=== PATIENT | male | born 1995 | race African-American/Black ===

== ENCOUNTER 2017-07-30 10:29 | Emergency (ER) | payer SELFPAY ==
[~2017-07-30] VITALS: Ht 198.1 cm; Wt 66.2 kg
[2017-07-30 10:37] VITALS: BP 119/76
[2017-07-30] MEDS ORDERED: NACL 0.9% 1,000 ML IV SCH (10:48)
[2017-07-30] MEDS ORDERED: ONDANSETRON 4 MG/2 ML VIAL IVP ONE (10:50)
[2017-07-30] MEDS ORDERED: FAMOTIDINE 20 MG/2 ML VIAL IVP ONE (10:50)
[2017-07-30 11:27] LABS: HEMATOCRIT 49.6 % (36-52); HEMOGLOBIN 15.9 g/dL (12.0-18.0); MEAN CORPUSCULAR HEMOGLOBIN 25 pg (27-31); MEAN CORPUSCULAR HGB CONC 32 g/dL (33-37); MEAN CORPUSCULAR VOLUME 78 fL (80-94); PLATELET COUNT (AUTO) 211 K/uL (140-450); RED BLOOD CELL COUNT(AUTO) 6.38 MIL/uL (4.20-6.10); RED CELL DISTRIBUTION WIDTH 12.6 % (11.6-13.7); WHITE BLOOD COUNT (AUTO) 7.9 K/uL (4.8-10.8)
[2017-07-30 11:55] LABS: LYMPHOCYTES % (MANUAL) 4 % (20-46); MONOCYTES % (MANUAL) 4 % (5-12)
[2017-07-30 11:56] LABS: ANION GAP 13.2 (8-16); CARBON DIOXIDE 29.9 mmol/L (21-32); CREATININE 1.3 mg/dL (0.7-1.3); POTASSIUM 4.1 mmol/L (3.5-5.1)
[2017-07-30 12:02] LABS: ALBUMIN 4.3 g/dL (3.4-5.0); MAGNESIUM 1.6 mg/dL (1.8-2.4); TOTAL BILIRUBIN 1.5 mg/dL (0.0-1.0)
[2017-07-30 12:22] LABS: APPEARANCE,URINE HAZY (CLEAR); BILIRUBIN,URINE NEGATIVE (NEGATIVE); BLOOD, URINE NEGATIVE (NEGATIVE); COLOR,URINE YELLOW (YELLOW); LEUKOCYTE ESTERASE ,URINE NEGATIVE (NEGATIVE); NITRITE, URINE NEGATIVE (NEGATIVE); UGLUCOSE NEGATIVE (NEGATIVE)
[2017-07-30] MEDS ORDERED: MAGNESIUM OXIDE 400 MG TAB PO ONE (12:50)
[2017-07-30 13:28] VITALS: BP 109/66
== END 2017-07-30 13:28 | disposition home or self-care (01) ==
LOC: MED 10:29
DX: R11.10 Vomiting, unspecified (principal); R19.7 Diarrhea, unspecified; R53.1 Weakness; R03.0 Elevated blood-pressure reading, without diagnosis of hypertension; J45.909 Unspecified asthma, uncomplicated
CPT/HCPCS: 36415; 80053; 81003; 83605; 83690; 83735; 85025; 87040; 96361; 96374; 96375; 99284; J2405; J3490; J7030